=== PATIENT | female | born 1985 | race Caucasian/White ===

== ENCOUNTER → 2018-11-06 | Outpatient (REF) | payer OTHER | LOC: M LAB REF 09:57 | PROVIDERS: ATTEND Internal Medicine | DX: J02.9 Acute pharyngitis, unspecified (principal) ==

== ENCOUNTER → 2018-11-21 | Outpatient (CLI) | payer OTHER ==
[2018-11-21 18:31] LABS: ALT/SGPT 30 U/L (12-78); BILIRUBIN,TOTAL 0.4 MG/DL (0.2-1.0); BLOOD UREA NITROGEN 9 MG/DL (7-18); CALCIUM LEVEL 8.5 MG/DL (8.5-10.1); CARBON DIOXIDE LEVEL 25 MEQ/L (21-32); CHLORIDE LEVEL 109 MEQ/L (98-107); CHOLESTEROL LEVEL 227 MG/DL (<200); CREATININE FOR GFR 0.62 MG/DL (0.55-1.30); FERRITIN 90 NG/ML (8-252); FREE T4 0.94 NG/DL (0.76-1.46); GLOMERULAR FILTRATION RATE > 60.0 (>60); GLUCOSE, FASTING 92 MG/DL (70-100); HDL CHOLESTEROL 50 MG/DL (>40); IRON (FE) 83 UG/DL (50-170); LDL CHOLESTEROL 155.4 MG/DL (<100); NON-HDL-C 177 MG/DL; PERCENT SATURATION 22.2 % (13.2-45.0); POTASSIUM SERUM 4.6 MEQ/L (3.5-5.1); SODIUM LEVEL 141 MEQ/L (136-145); TOTAL IRON BINDING CAPACITY 374 UG/DL (250-450); TOTAL PROTEIN 7.2 GM/DL (6.4-8.2); TRIGLYCERIDES LEVEL 108 MG/DL (<150)
[2018-11-21 18:40] LABS: BASO # 0.1 10^3/uL (0.0-0.2); BASO % 0.5 % (0.0-1.0); EOS # 0.3 10^3/uL (0.0-0.50); EOS % 2.6 % (0.0-3.0); HEMATOCRIT 39.8 % (36.0-47.0); HEMOGLOBIN 12.8 g/dl (12.0-15.5); LYMPH # 2.7 10^3/uL (1.5-4.5); LYMPH % 21.2 % (24.0-44.0); MEAN CORPUSCULAR HEMOGLOBIN 29.7 pg (27.0-33.0); MEAN CORPUSCULAR HGB CONC 32.2 g/dl (32.0-36.5); MEAN CORPUSCULAR VOLUME 92.3 fl (80.0-96.0); MONO # 0.7 10^3/uL (0.0-0.8); MONO % 5.7 % (0.0-5.0); NEUTROPHILS # 8.7 10^3/uL (1.8-7.7); NEUTROPHILS % 69.7 % (36.0-66.0); PLATELET COUNT, AUTOMATED 304 10^3/uL (150-450); RED BLOOD COUNT 4.31 10^6/uL (4.00-5.40); WHITE BLOOD COUNT 12.5 10^3/uL (4.0-10.0)
[2018-11-21 19:20] LABS: HEMOGLOBIN A1c 5.8 %
== END ==
LOC: M ADAMS 09:30
PROVIDERS: ATTEND Physician Assistant
DX: Z13.29 Encounter for screening for other suspected endocrine disorder (principal)

== ENCOUNTER → 2019-04-12 | Outpatient (CLI) | payer OTHER ==
--- NOTE | 2019-04-12 16:37 | REP ---
Right shoulder: Three views. History: Pain in the right shoulder. Findings: The right glenohumeral and acromioclavicular joints are normally aligned. Periarticular soft tissues are unremarkable. No erosive changes seen. Impression: Negative radiographs of the right shoulder. Electronically Signed by Marty Monet MD 04/12/2019 04:29 P
--- NOTE | 2019-04-12 16:38 | REP ---
Chest x-ray: Two views. History: Pain in the right shoulder. Findings: The lungs are symmetrically aerated and clear. The pleural angles are sharp. Heart size is normal. Pulmonary vasculature is not increased. No significant bony abnormality. Impression: No active disease. Electronically Signed by Marty Monet MD 04/12/2019 04:30 P
== END ==
LOC: M ADAMS 16:13
PROVIDERS: ATTEND Physician Assistant
DX: M25.511 Pain in right shoulder (principal)

== ENCOUNTER → 2019-06-04 | Outpatient (REF) | payer OTHER ==
[2019-06-04 12:53] LABS: BASO # 0.1 10^3/uL (0.0-0.2); BASO % 0.8 % (0.0-1.0); EOS # 0.4 10^3/uL (0.0-0.5); EOS % 3.9 % (0.0-3.0); HEMOGLOBIN 12.8 g/dl (12.0-15.5); LYMPH # 2.9 10^3/uL (1.5-5.0); LYMPH % 27.5 % (24.0-44.0); MEAN CORPUSCULAR HEMOGLOBIN 29.6 pg (27.0-33.0); MEAN CORPUSCULAR HGB CONC 31.2 g/dl (32.0-36.5); MEAN CORPUSCULAR VOLUME 94.7 fl (80.0-96.0); MONO # 0.6 10^3/uL (0.0-0.8); MONO % 5.8 % (0.0-5.0); NEUTROPHILS # 6.5 10^3/uL (1.5-8.5); NEUTROPHILS % 61.5 % (36.0-66.0); PLATELET COUNT, AUTOMATED 300 10^3/uL (150-450); RED BLOOD COUNT 4.33 10^6/uL (4.00-5.40); WHITE BLOOD COUNT 10.5 10^3/uL (4.0-10.0)
[2019-06-04 13:06] LABS: ALT/SGPT 25 U/L (12-78); BILIRUBIN,TOTAL 0.4 MG/DL (0.2-1.0); BLOOD UREA NITROGEN 7 MG/DL (7-18); CALCIUM LEVEL 8.9 MG/DL (8.5-10.1); CARBON DIOXIDE LEVEL 27 MEQ/L (21-32); CHLORIDE LEVEL 108 MEQ/L (98-107); CHOLESTEROL LEVEL 183 MG/DL (<200); CHOLESTEROL RISK RATIO 4.159 (<5); CREATININE FOR GFR 0.65 MG/DL (0.55-1.30); GLOMERULAR FILTRATION RATE > 60.0 (>60); GLUCOSE, FASTING 83 MG/DL (70-100); HDL CHOLESTEROL 44 MG/DL (>40); LDL CHOLESTEROL 120 MG/DL (<100); NON-HDL-C 139 MG/DL; SODIUM LEVEL 141 MEQ/L (136-145); TOTAL PROTEIN 7.2 GM/DL (6.4-8.2); TRIGLYCERIDES LEVEL 95 MG/DL (<150)
[2019-06-04 14:19] LABS: HEMOGLOBIN A1c 5.6 %
== END ==
LOC: M LAB REF 12:42 → M LABDRWAD 12:42
PROVIDERS: ATTEND Physician Assistant
DX: E78.00 Pure hypercholesterolemia, unspecified (principal); R73.01 Impaired fasting glucose

== ENCOUNTER 2019-06-23 16:30 | Outpatient (RCR) | payer OTHER | END 2019-07-03 | LOC: M PT 16:30 | PROVIDERS: ATTEND Physician Assistant | DX: M25.511 Pain in right shoulder (principal); M19.011 Primary osteoarthritis, right shoulder; M75.91 Shoulder lesion, unspecified, right shoulder ==

== ENCOUNTER → 2020-04-19 | Outpatient (CLI) | payer OTHER ==
[2020-04-19 09:49] LABS: BASO # 0.1 10^3/uL (0.0-0.2); BASO % 0.7 % (0.0-1.0); EOS # 0.2 10^3/uL (0.0-0.5); EOS % 2.4 % (0.0-3.0); HEMATOCRIT 39.6 % (36.0-47.0); HEMOGLOBIN 12.8 g/dl (12.0-15.5); LYMPH % 20.6 % (24.0-44.0); MEAN CORPUSCULAR HEMOGLOBIN 30.1 pg (27.0-33.0); MEAN CORPUSCULAR HGB CONC 32.3 g/dl (32.0-36.5); MEAN CORPUSCULAR VOLUME 93.2 fl (80.0-96.0); MONO # 0.6 10^3/uL (0.0-0.8); MONO % 5.9 % (0.0-5.0); NEUTROPHILS # 6.6 10^3/uL (1.5-8.5); PLATELET COUNT, AUTOMATED 251 10^3/uL (150-450); RED BLOOD COUNT 4.25 10^6/uL (4.00-5.40); WHITE BLOOD COUNT 9.5 10^3/uL (4.0-10.0)
[2020-04-19 10:12] LABS: ALBUMIN 4.1 GM/DL (3.2-5.2); ALT/SGPT 31 U/L (12-78); BILIRUBIN,TOTAL 0.4 MG/DL (0.2-1.0); BLOOD UREA NITROGEN 10 MG/DL (7-18); CALCIUM LEVEL 9.2 MG/DL (8.5-10.1); CARBON DIOXIDE LEVEL 27 MEQ/L (21-32); CHLORIDE LEVEL 111 MEQ/L (98-107); CHOLESTEROL LEVEL 206 MG/DL (<200); CHOLESTEROL RISK RATIO 3.433 (<5); CREATININE FOR GFR 0.67 MG/DL (0.55-1.30); GLOMERULAR FILTRATION RATE > 60.0 (>60); GLUCOSE, FASTING 90 MG/DL (70-100); HDL CHOLESTEROL 60 MG/DL (>40); LDL CHOLESTEROL 131 MG/DL (<100); NON-HDL-C 146 MG/DL; POTASSIUM SERUM 4.4 MEQ/L (3.5-5.1); SODIUM LEVEL 142 MEQ/L (136-145); TOTAL PROTEIN 7.4 GM/DL (6.4-8.2); TRIGLYCERIDES LEVEL 75 MG/DL (<150)
[2020-04-19 10:24] LABS: HEMOGLOBIN A1c 5.4 %
== END ==
LOC: M LAB 08:57
PROVIDERS: ATTEND Physician Assistant
DX: E78.5 Hyperlipidemia, unspecified (principal); E66.9 Obesity, unspecified

== ENCOUNTER → 2020-07-14 | Outpatient (CLI) | payer OTHER ==
[~2020-07-14] MED LIST: BUPR150T3
== END ==
LOC: M LABSMTC 09:45
PROVIDERS: ATTEND Anesthesiology
DX: Z01.812 Encounter for preprocedural laboratory examination (principal); Z20.828 Contact with and (suspected) exposure to other viral communicable diseases

== ENCOUNTER 2020-07-19 06:31 | Day surgery (SDC) | payer OTHER ==
[2020-07-19] VITALS (9 sets, daily range): BP systolic 90–115; BP diastolic 53–73
[~2020-07-19] VITALS: Ht 152.4 cm; Wt 77.1 kg
[~2020-07-19 06:31] MED LIST changes: +LIDOCAINE 1% MDV 20ML VIAL SQ PRN
[2020-07-19 07:06] LABS: HEMATOCRIT 38.7 % (36.0-47.0); HEMOGLOBIN 12.4 g/dl (12.0-15.5); MEAN CORPUSCULAR HEMOGLOBIN 30.5 pg (27.0-33.0); MEAN CORPUSCULAR VOLUME 95.3 fl (80.0-96.0); PLATELET COUNT, AUTOMATED 270 10^3/uL (150-450); RED BLOOD COUNT 4.06 10^6/uL (4.00-5.40); WHITE BLOOD COUNT 9.3 10^3/uL (4.0-10.0)
[2020-07-19] MEDS ORDERED: fentaNYL 250 MCG/5 ML INJECTION (J3010) As Ordered ONE (07:18)
[2020-07-19] MEDS ORDERED: MIDAZOLAM INJ 2MG/2ML VIAL (J2250 PER 1MG) As Ordered ONE (07:18)
[2020-07-19] MEDS ORDERED: ROCURONIUM BROMIDE 50 MG/5 ML VIAL As Ordered ONE ×2 (07:18→09:29)
[2020-07-19] MEDS ORDERED: LIDOCAINE 2% 100MG/5ML SDV (FOR ANES.) As Ordered ONE (07:18)
[2020-07-19] MEDS ORDERED: propofoL 200 MG/20 ML VIAL As Ordered ONE (07:18)
[2020-07-19] MEDS ORDERED: ceFAZolin SOD 2 GM in IV 1 EA IV ONE (07:45)
[2020-07-19] MEDS ORDERED: LR 1,000 ML IV ONE (07:45)
[2020-07-19] MEDS ORDERED: NS IV ONE (08:00)
[2020-07-19] MEDS ORDERED: DESMOPRESSIN ACETATE IV ONE (08:00)
[2020-07-19] MEDS ORDERED: dexameTHASONE 4 MG/ML 1ML VIAL (J1100 PER 1MG) As Ordered ONE (08:55)
[2020-07-19] MEDS ORDERED: DESFLURANE 240 ML INHALANT As Ordered ONE (09:06)
[2020-07-19] MEDS ORDERED: PHENYLephrine HCL 500 MCG/5 ML (100MCG/ML) SYRINGE (J2370) As Ordered ONE (09:08)
[2020-07-19] MEDS ORDERED: ACETAMINOPHEN 1000MG 100ML IV BTL (OFIRMEV) (J0131 PER 10MG) As Ordered ONE (09:10)
[2020-07-19] MEDS: BUPIVACAINE HCL 0.25% 10ML VIAL As Ordered ONE ×2 (09:10→09:15)
[2020-07-19] MEDS ORDERED: SUGAMMADEX SODIUM 500 MG/5 ML VIAL (BRIDION) As Ordered ONE ×2 (09:38→09:40)
[2020-07-19] MEDS ORDERED: ONDANSETRON 4MG/2ML VIAL As Ordered ONE (09:38)
[2020-07-19] MEDS ORDERED: METOCLOPRAMIDE INJ 10MG/2ML VIAL (J2765 PER 1) As Ordered ONE (09:38)
--- NOTE | 2020-07-19 10:10 | ROOPDOC ---
[facility] Report Of Operation Report of Operation DATE OF PROCEDURE: 07/19/20 OPERATIVE REPORT: Preoperative diagnosis: Menorrhagia Postoperative diagnosis: Same. Procedure: Robotic-assisted laparoscopic hysterectomy, bilateral salpingectomy, cystoscopy. Surgeon: Zeyad Lopez M.D. Sql Bi Developer: Dominga Mack NP EBL: 50 mL's. Urine output: 100 mL's. Operative summary: Patient was taken to the operating room where general endotracheal anesthesia was induced. She was prepped and draped in sterile fashion in the dorsal lithotomy position. A Avila Catheter was placed. A V care uterine manipulator was placed. A Periumbilical incision was made with a scalpel. . A Veress needle was placed through this incision. Intra-abdominal location of Veress needle was assessed with saline filled syringe. A pneumoperitoneum was created. The Veress needle was removed. An 8 mm trocar using the Anesivaiport was inserted through this incision. Three 8 mm suprapubic ports were placed under direct visualization The patient was placed in Trendelenburg position. The [employer] Elieser surgical robot was docked to the ports. Using the fenestrated bipolar instrument and vessel sealer, the broad ligament attachments to the fallopian tubes and the utero-ovarian ligaments were coagulated and incised. The round ligaments were coagulated and incised. The anterior and posterior leaves of the broad ligament were . Bladder flap was created. The uterine vessels were coagulated and incised using monopolar Endo Deni. A colpotomy was created in the upper vagina at the level of the V care Cup. The specimen including the uterus, cervix, and fallopian tubes was removed through the vagina. The vaginal cuff was closed with #1 V lock suture in running fashion. Cystoscopy was performed using a 70 cystoscope. Bilateral ureteral jets were identified. No evidence of injury to the bladder. The cystoscope was removed. All instruments removed. The skin was closed with 4-0 Monocryl subcuticular sutures. Dominga Mack NP assisted with all aspects of the procedure. She helped position the patient. She helped insert the ports and manipulate the uterus. She removed the specimen. ZEYAD LOPEZ MD Jul 19, 2020 10:10
[2020-07-19] MEDS ORDERED: oxyCODONE 5MG TAB As Ordered ONE (10:25)
[2020-07-19] MEDS ORDERED: ONDANSETRON 4MG/2ML VIAL IV PRN ×2 (10:30→10:45)
[2020-07-19] MEDS ORDERED: LR 1,000 ML IV SCH ×2 (10:30)
[2020-07-19] MEDS ORDERED: fentaNYL 100 MCG/2 ML INJECTION (J3010) IV PRN (10:30)
[2020-07-19] MEDS ORDERED: MORPHINE 2 MG/ML 1ML VIAL (J2270) IV PRN (10:30)
[2020-07-19] MEDS ORDERED: oxyCODONE 5MG TAB PO PRN (10:30)
[2020-07-19] MEDS ORDERED: KETOROLAC 30 MG/ML 1ML VIAL IV PRN (11:30)
[2020-07-19] MEDS ORDERED: KETOROLAC IV PRN (16:00)
[2020-07-19] MEDS ORDERED: PERCOCET 5MG/325MG TAB PO PRN (20:00)
[2020-07-19] MEDS: DOCUSATE SODIUM 100MG CAPSULE PO SCH (21:12)
[2020-07-20 06:00] VITALS: BP 109/70
[2020-07-20] MEDS: DOCUSATE SODIUM 100MG CAPSULE PO SCH (08:23)
[2020-07-20 10:00] VITALS: BP 103/66
[2020-07-20] MEDS ORDERED: OXYC1TAB23 PO (10:27)
[2020-07-20] MEDS ORDERED: IBUP-1022 PO (10:28)
[2020-07-20] MEDS ORDERED: DOK1CAP7 PO (15:23)
[2020-07-20] MEDS ORDERED: INFLUENZA QUADRIVALENT PF VACCINE 0.5ML SYRINGE IM ONE (17:00)
== END 2020-07-20 16:49 | disposition home or self-care (01) ==
LOC: M SDC 06:31 → M MSPAV 11:12 → M SDC 07-20 16:49
PROVIDERS: ATTEND Specialist
DX: N92.0 Excessive and frequent menstruation with regular cycle (principal); N80.0 Endometriosis of uterus; N72 Inflammatory disease of cervix uteri; F32.9 Major depressive disorder, single episode, unspecified
CPT/HCPCS: 36415; 58571; 85027; 86850; 86900; 86901; 88307; 90686; J0131; J0690; J1100; J1885; J2250; J2370; J2405; J2597; J2765; J3010